=== PATIENT | female | born 1935 | race Caucasian/White ===

== ENCOUNTER 2019-10-07 11:03 | Emergency (ER) | payer MEDICARE ==
--- NOTE | 2019-10-07 11:41 | RAD ---
EXAM: Right Rib series HISTORY: Rib pain after fall COMPARISON: None FINDINGS: Multiple views of the right ribs shows a questionable nondisplaced fracture of the right lateral eigh th rib. No underlying pleural thickening or pneumothorax are seen. IMPRESSION: Questionable right eighth rib fracture.
== END 2019-10-07 12:40 ==
LOC: NAV ERS 11:03
DX: S22.31XA Fracture of one rib, right side, initial encounter for closed fracture (principal); I48.91 Unspecified atrial fibrillation; E78.5 Hyperlipidemia, unspecified; E78.00 Pure hypercholesterolemia, unspecified; I11.0 Hypertensive heart disease with heart failure; I50.9 Heart failure, unspecified; G30.9 Alzheimer's disease, unspecified; Z79.899 Other long term (current) drug therapy; Z79.82 Long term (current) use of aspirin; W19.XXXA Unspecified fall, initial encounter